=== PATIENT | female | born 1955 | race Two or more races ===

== ENCOUNTER 2025-06-29 15:50 | Emergency (ER) | payer OTHER, SELFPAY ==
[2025-06-29 16:38] VITALS: BP 166/83; PULSE 79; RESP 18; TEMP 36.8; O2SAT 95
--- NOTE | 2025-06-29 16:50 | XR_ITS ---
Examination: CT abdomen and pelvis without contrast. Coronal 3-D reconstructions. Sagittal 2-D reconstructions. Date and time of exam: June 29, 2025, 1746 hours INDICATIONS: Generalized abdominal pain today CTDI: vol (mGy): 7.24 DLP: (mGycm): 367 Technique: Axial images of the abdomen have been obtained, 3 mm slice thickness Intravenous contrast material has not been administered. Low dose protocols were performed. One or more of the following dose reduction techniques were used; automated exposure control, adjustment of the mA and/or KV according to patient size, use of iterative reconstruction technique. Findings: No focal liver or splenic lesions No gallstones No pancreatic or adrenal mass No renal or ureteral calculi, no hydronephrosis Aorta normal size 5 mm fat-containing umbilical hernia Normal appendix No bowel obstruction No pelvic mass No bladder mass or bladder calculi Grade 1 anterolisthesis L4 on L5, L4-L5 moderate to severe overall spinal stenosis, axial image 108, including prominent facet arthropathy and thickening of the ligamentum flavum IMPRESSION: No renal or ureteral calculi, no hydronephrosis Normal appendix No bowel obstruction diverticulitis or free air. L4-L5 moderate to severe overall acquired spinal stenosis
--- NOTE | 2025-06-29 16:51 | PD.EDRME ---
Rapid Medical Screening Exam RME Arrival date/time: 06/29/25 15:50 70-year-old female presents to the Emergency Department today for complaints of left side abdominal pain x 1 month Chief Complaint: Abdominal Pain Time Seen by Provider: 06/29/25 16:13 Vital signs: Vital Signs Temperature 98.2 F 06/29/25 16:38 Pulse Rate 79 06/29/25 16:38 Respiratory Rate 18 06/29/25 16:38 Blood Pressure 166/83 H 06/29/25 16:38 Pulse Oximetry (%) 95 06/29/25 16:38 Oxygen Delivery Method Room Air 06/29/25 16:38 Vital signs reviewed by provider: Yes Exam: On exam well-appearing does not appear ill or toxic Clinical Impression: Lab work and imaging obtained
[2025-06-29 17:19] LABS: Basophils # (Auto) 0.1 Thou/mm3 (0.0-0.2); Basophils % (Auto) 1 % (0-2.5); Eosinophils # (Auto) 0.1 Thou/mm3 (0.0-0.5); Eosinophils % (Auto) 1 % (0-10); Hematocrit 39.6 % (36.0-46.0); Hemoglobin 13.2 g/dL (12.0-16.0); Immature Granulocytes Auto 0.02 Thou/mm3 (0.00-0.00); Lymphocytes # (Auto) 3.1 Thou/mm3 (1.0-4.8); Lymphocytes % (Auto) 31 % (10-50); Mean Corpuscular HGB Conc 33.3 g/dl (31.0-37.0); Mean Corpuscular Hemoglobin 28.9 pg (25.0-35.0); Mean Corpuscular Volume 87 fL (80-100); Monocytes # (Auto) 0.7 Thou/mm3 (0.0-0.8); Monocytes % (Auto) 7 % (0-12); Neutrophils # (Auto) 5.9 Thou/mm3 (1.8-7.7); Neutrophils % (Auto) 60 % (37-80); Nucleated Red Blood Cell # 0.00 Thou/mm3 (0.00-0.00); Nucleated Red Blood Cell % 0 /100 WBC (0); Platelet Count 273 Thou/mm3 (140-440); RDW Standard Deviation 41.0 fL (36.4-46.3); Red Blood Count 4.56 Miln/mm3 (4.00-5.20); White Blood Count 9.9 Thou/mm3 (3.6-11.0)
[2025-06-29 17:45] LABS: Collection Type, Urine Clean Catch; RBC,Urine 0 /hpf (0-3); WBC,Urine 0 /hpf (0-5)
[2025-06-29 18:02] LABS: Alanine Aminotransferase 23 U/L (10-49); Albumin, Serum 4.6 gm/dL (3.4-4.8); Albumin/Globulin Ratio 1.8 (1.2-2.2); Alkaline Phosphatase 98 U/L (46-116); Anion Gap 9 (7-16); Aspartate Amino Transferase 20 U/L (0-34); BUN/Creatinine Ratio 16 Ratio (12-20); Bilirubin,Total 0.3 mg/dL (0.3-1.2); Blood Urea Nitrogen 11 mg/dL (9-23); Calcium 9.6 mg/dL (8.3-10.6); Calcium (Corrected) 9.6 mg/dL (8.5-10.1); Carbon Dioxide 30.4 mMol/L (20.0-31.0); Chloride 104 mMol/L (98-107); Creatinine (Component) 0.7 mg/dL (0.6-1.3); Globulin 2.5 gm/dL (2.3-3.5); Glucose 110 mg/dL (74-106); Lipase 28 U/L (12-53); Osmolality,Calculated 285 (275-295); Potassium 4.3 mMol/L (3.4-5.1); Sodium 143 mMol/L (136-145); Total Protein 7.1 gm/dL (5.7-8.2); Troponin I < 0.002 ng/mL (0.0-0.045); eGFR > 60 See Note
[2025-06-29 18:13] LABS: Bilirubin,Urine Negative (Negative); Blood,Urine Negative (Negative); Clarity,Urine Clear (Clear/Hazy); Color,Urine Colorless (Lt Yel-Yel); Culture Indicated,Urine Not Indicated; Glucose, Urine Negative (Negative); Ketones,Urine Negative (Negative); Leukocyte Esterase,Urine Negative (Negative); Nitrite,Urine Negative (Negative); PH,Urine 7.0 (5.0-7.0); Protein,Urine Negative (Neg - Trace); Specific Gravity,Urine 1.007 (1.001-1.035); Squamous Epithelial Cell,Urine 1 /hpf (0-5); Urobilinogen,Urine Negative mg/dL (0.0-1.0)
--- NOTE | 2025-06-29 22:23 | PD.EDADULT ---
ED General RME/HPI General Chief complaint: Abdominal Pain Stated complaint: UPSET STOMACH, ABD PAIN, BURNING ON R) SIDE Time Seen by Provider: 06/29/25 16:13 Arrival date/time: 06/29/25 15:50 RME / HPI RME / HPI narrative: 06/29/25 15:50 70-year-old female presents to the Emergency Department today for complaints of left side abdominal pain x 1 month Exam: On exam well-appearing does not appear ill or toxic Impression: Lab work and imaging obtained Related Data Previous Rx's ?Medication ?Instructions ?Recorded hyoscyamine sulfate 0.125 mg tablet 0.125 mg PO QID PRN dyspepsia 1 06/29/25 week #21 tabs Allergies Allergy/AdvReac Type Severity Reaction Status Date / Time No Known Allergies Allergy Verified 06/29/25 15:53 Course Orders Category Date Time Status CT abdomen pelvis wo con Stat Exams 06/29/25 16:50 Completed CBC Stat Lab 06/29/25 17:09 Completed Comprehensive Metabolic Panel Stat Lab 06/29/25 17:09 Completed Lipase Stat Lab 06/29/25 17:09 Completed Troponin I Stat Lab 06/29/25 17:09 Completed UA, C/S IF [Urinalysis, C/S if Indicated] Stat Lab 06/29/25 17:21 Completed Hyoscyamine Sulf [Levsin] Med 06/29/25 22:20 Once 0.125 mg PO X1 ONE Vital Signs Vital signs: Vital Signs Temperature 98.2 F 06/29/25 16:38 Pulse Rate 79 06/29/25 16:38 Respiratory Rate 18 06/29/25 16:38 Blood Pressure 166/83 H 06/29/25 16:38 Pulse Oximetry (%) 95 06/29/25 16:38 Oxygen Delivery Method Room Air 06/29/25 16:38 Discharge Plan Plan Patient Disposition: HOME (Self Care) Discharge Disposition comment: Please follow-up with your PCP within 1 week Please take hyoscyamine 0.125 mg every 4 hours as needed for abdominal pain Please make sure you are up-to-date with colonoscopies Patient condition on transfer: Stable Prescriptions/Referrals Prescriptions/Med Rec: New hyoscyamine sulfate 0.125 mg tablet 0.125 mg PO QID PRN (Reason: dyspepsia) 7 Days Qty: 21 0RF Referrals: No Primary/Family,Physician [Primary Care Provider] - In 1 week Problem List Clinical Impression: IBS (irritable colon syndrome) Patient/Caregiver Discharge Instructions Education Materials: What Is Irritable Bowel ..., IBS Diet Lifestyle Print Language: Irish Stand Alone Forms: Elena Award Info., Patient Portal Info Letter MDM Medication Administration(s) Medication Administration History Hyoscyamine (Hyoscyamine Sulf 0.125 Mg Tab.Subl) 0.125 mg PO X1 ONE Stop: 06/29/25 22:21
--- NOTE | 2025-06-29 23:16 | EDNOTE_ITS ---
ED General RME/HPI General Chief complaint: Abdominal Pain Stated complaint: UPSET STOMACH, ABD PAIN, BURNING ON R) SIDE Time Seen by Provider: 06/29/25 16:13 Arrival date/time: 06/29/25 15:50 RME / HPI RME / HPI narrative: 06/29/25 15:50 70-year-old female presents to the Emergency Department today for complaints of left side abdominal pain x 1 month Exam: On exam well-appearing does not appear ill or toxic Impression: Lab work and imaging obtained Related Data Previous Rx's ?Medication ?Instructions ?Recorded hyoscyamine sulfate 0.125 mg tablet 0.125 mg PO QID NC N dyspepsia 1 06/29/25 week #21 tabs Allergies Allergy/AdvReac Type Severity Reaction Status Date / Time No Known Allergies Allergy Verified 06/29/25 15:53 ED Exam Narrative Physical exam: Physical Exam: GENERAL: Awake, answer close appropriately in [place], appears stated age HEENT: NC/AT. Moist mucosa. PERRLA/EOMI. CARDIO: Heart RRR, no obvious murmurs, no JVD. PULM: No coughing or visible SOB. Lungs CTA B/L. GI: Abdomen soft, mildly tender to palpation in the left lower quadrant otherwise patient is abdominal exam largely negative, no rebound tenderness no rigidity, borborygmi apparent SKIN/MSK/EXT: No wounds/discoloration/rashes/edema/amputations noted. +Pedal pulses present B/L. NEURO: Oriented x3, Moves extremities x4, no focal neurologic deficits noted. Course Quality Measures none Orders Category Date Time Status CT abdomen pelvis wo con Stat Exams 06/29/25 16:50 Completed CBC Stat Lab 06/29/25 17:09 Completed Comprehensive Metabolic Panel Stat Lab 06/29/25 17:09 Completed Lipase Stat Lab 06/29/25 17:09 Completed Troponin I Stat Lab 06/29/25 17:09 Completed UA, C/S IF [Urinalysis, C/S if Indicated] Stat Lab 06/29/25 17:21 Completed Hyoscyamine Sulf [Levsin] Med 06/29/25 22:20 Discontinued 0.125 mg PO X1 ONE Vital Signs Vital signs: Vital Signs Temperature 98.2 F 06/29/25 16:38 Pulse Rate 79 06/29/25 16:38 Respiratory Rate 18 06/29/25 16:38 Blood Pressure 166/83 H 06/29/25 16:38 Pulse Oximetry (%) 95 06/29/25 16:38 Oxygen Delivery Method Room Air 06/29/25 16:38 Discharge Plan Plan Patient Disposition: HOME (Self Care) Discharge Disposition comment: Please follow-up with your PCP within 1 week Please take hyoscyamine 0.125 mg every 4 hours as needed for abdominal pain Please make sure you are up-to-date with colonoscopies Patient condition on transfer: Stable Prescriptions/Referrals Prescriptions/Med Rec: New hyoscyamine sulfate 0.125 mg tablet 0.125 mg PO QID PRN (Reason: dyspepsia) 7 Days Qty: 21 0RF Referrals: No Primary/Family,Physician [Primary Care Provider] - In 1 week Problem List Clinical Impression: IBS (irritable colon syndrome) Patient/Caregiver Discharge Instructions Education Materials: What Is Irritable Bowel ..., IBS Diet Lifestyle Print Language: [place] Stand Alone Forms: Elena Award Info., Patient Portal Info Letter MDM Narrative MDM hospital course (for use when minimal MDM required): HPI: 70-year-old female with no significant past medical history presenting to the ED on 06/29 with diffuse abdominal pain. Patient states that she has been having abdominal pain on and off for about the past 2 weeks. She states that the pain is exacerbated after she eats food but denies having any issues with bowel movements; last bowel movement was earlier this morning and she denies having any melena, hematochezia or hematemesis. She has been seen in the past by drug safety associate who did a colonoscopy (about 4 years ago) and told her to come back in 10 years. She otherwise denies have any concerning symptoms such as chest pain, shortness of breath, dizziness, fevers/chills but apparently she did lose about 5 pounds in the past month. Physical exam as stated above, patient presented to the ED mildly hypertensive 166/83, heart rate of 79, respiratory of 18, afebrile satting 95 on room air. Laboratory findings were largely unremarkable including CBC showing a WBC of 9.9, hemoglobin 13.2, CMP was also unremarkable for the most part, glucose was mildly elevated at 110 but otherwise no concerning findings noted. Urinalysis did not show any signs of infection. CT of the abdomen pelvis done without contrast showed a 5 mm fat-containing umbilical hernia, L4-L5 moderate to severe spinal stenosis but otherwise no concerning findings. Differentials at this time include: IBS, gastritis, peptic ulcer disease, enteritis, less likely to be diverticulitis or IBD #IBS #Abdominal discomfort As noted above ruled out most concerning etiologies based on CT abdomen the pe lvis results Patient's lab work is unremarkable for the most part On exam patient does not have any rigidity, rebound tenderness and is generally well-appearing Plan: Will discharge patient with hyoscyamine 0.125 mg 4 times daily as needed Patient will follow-up with PCP within the next 5 to 7 days and monitor for improvement in pain Patient seen and assessed with attending Dr. Clifton Kennedy, DO PGY-2 Internal Medicine - [facility] Medication Administration(s) Medication Administration History Discontinued Medications Hyoscyamine (Hyoscyamine Sulf 0.125 Mg Tab.Subl) 0.125 mg PO X1 ONE Stop: 06/29/25 22:21 Last Admin: 06/29/25 22:34 Dose: Not Given Documented By: CVL Non-Admin Reason: Cancelled by Provider
== END 2025-06-29 22:35 | disposition home or self-care (01) ==
PROVIDERS: Nurse Practitioner Primary Care; Emergency Provider Emergency Medicine
DX: K58.9 Irritable bowel syndrome, unspecified (principal); K42.9 Umbilical hernia without obstruction or gangrene; M48.061 Spinal stenosis, lumbar region without neurogenic claudication
CPT/HCPCS: 36415; 74176; 80053; 81001; 83690; 84484; 85025; 99283